=== PATIENT | female | born 1960 | race Caucasian/White ===

== ENCOUNTER 2018-10-19 10:13 | Day surgery (SDC) | payer OTHER ==
[2018-10-19] MEDS ORDERED: MIDAZOLAM HCL 5 MG/5 ML VIAL ONE (11:00)
[2018-10-19] MEDS ORDERED: DIPHENHYDRAMINE INJ 50 MG/ML VIAL ONE (11:00)
[2019-10-19] MEDS ORDERED: methylPREDNISolone ACETATE 40 MG/ML ONE (10:30)
[2019-10-19] MEDS ORDERED: BUPIVACAINE /PF 0.25% 30 ML VIAL INJ ONE (10:30)
[2019-10-19] MEDS ORDERED: LIDOCAINE 1% 10 MG/ML, 20 ML MDV ONE (10:30)
[2019-10-19] MEDS ORDERED: IOPAMIDOL 50 ML VIAL IV ONE (10:30)
== END 2018-10-19 12:22 | disposition home or self-care (01) ==
LOC: SDS 10:13
PROVIDERS: ATTEND Internal Medicine
DX: M50.10 Cervical disc disorder with radiculopathy, unspecified cervical region (principal); M54.5 Low back pain; Z80.9 Family history of malignant neoplasm, unspecified; Z83.3 Family history of diabetes mellitus; Z90.710 Acquired absence of both cervix and uterus; Z98.890 Other specified postprocedural states
CPT/HCPCS: 62321; J1200; J2250; 76000

== ENCOUNTER 2019-07-05 09:36 | Day surgery (SDC) | payer OTHER ==
[~2019-07-05] VITALS: Ht 162.6 cm; Wt 69.9 kg
[2019-07-05] MEDS ORDERED: DIPHENHYDRAMINE INJ 50 MG/ML VIAL IV ONE (09:37)
[2019-07-05] MEDS ORDERED: MIDAZOLAM HCL 5 MG/ML VIAL (VERSED) IV ONE (09:37)
[2019-07-05] MEDS ORDERED: methylPREDNISolone ACETATE 40 MG/ML IM ONE (09:37)
[2019-07-05] MEDS ORDERED: ONDANSETRON HCL 4 MG/2 ML VIAL IVP ONE (09:37)
[2019-07-05] MEDS ORDERED: LIDOCAINE 2%, 20 ML MDV INJ ONE (09:37)
[2019-07-05] MEDS: MIDAZOLAM HCL 5 MG/5 ML VIAL ONE ×3 (11:17→11:24)
[2019-07-05] MEDS: DIPHENHYDRAMINE INJ 50 MG/ML VIAL ONE ×2 (11:19→11:25)
[2019-07-05 13:04] VITALS: BP_SYST 132
[2019-07-05] MEDS ORDERED: ONDANSETRON HCL 4 MG/2 ML VIAL ONE (13:44)
== END 2019-07-05 12:40 | disposition home or self-care (01) ==
LOC: SDS 09:36 → SMU 09:37 → SDS 12:40
PROVIDERS: ATTEND Internal Medicine
DX: M47.812 Spondylosis without myelopathy or radiculopathy, cervical region (principal); F17.200 Nicotine dependence, unspecified, uncomplicated; Z90.710 Acquired absence of both cervix and uterus; Z96.651 Presence of right artificial knee joint; Z91.048 Other nonmedicinal substance allergy status; Z88.8 Allergy status to other drugs, medicaments and biological substances; Z79.899 Other long term (current) drug therapy
CPT/HCPCS: 76000; J1030; J1200; J2001; J2250; J2405